=== PATIENT | male | born 1965 | race Caucasian/White ===

== ENCOUNTER 2018-09-15 10:44 | Emergency (ER) | payer SELFPAY ==
[~2018-09-15] VITALS: Ht 175.3 cm; Wt 63.5 kg
--- OUTSIDE RECORDS SUMMARY | 2018-09-15 10:49 | XMS REPORT | Continuity of Care Document ---
Author Author [facility] Organization [facility] Address Unknown Phone Unavailable Allergies There is no data. Medications There is no data. Problems There is no data. Procedures There is no data. Results There is no data. Encounters ACCT No. Visit Date/Time Discharge Status Pt. Type Provider Facility Loc./Unit Complaint [id number] 05/17/2014 11:15:00 05/17/2014 23:59:59 CLS Outpatient [id number] 08/17/2013 15:44:00 08/17/2013 17:13:00 DIS Emergency [id number] 05/18/2013 09:25:00 05/18/2013 10:09:00 DIS Emergency
--- OUTSIDE RECORDS SUMMARY | 2018-09-15 10:49 | XMS REPORT | Continuity of Care Document ---
Author Author [facility] Organization [facility] Address Unknown Phone Unavailable Care Team Providers Care Check Services Clerk Name Role Phone NO, LOCAL PHYSICIAN PP Unavailable Insurance Providers Payer Name Policy Number Subscriber Name Relationship Self Pay SharifFlex Mihaela 01 Self / Same As Patient Advance Directives Directive Response Recorded Date Advance Directives N 05/18/13 9:37am Health Care Power of Interactive Media Marketing Specialist N 05/18/13 9:37am Organ Donor N 05/18/13 9:37am Problems No Known Problems or Medical conditions. Social History History Response Recorded Date/Time Alcohol Use Occasionally Uses 05/18/13 9: 37am Recreational Drug Use N 05/18/13 9:37am Allergies, Adverse Reactions, Alerts Allergen Type Severity Reaction Last Updated House Dust Adverse Reaction Mild 05/18/13 RABBIT DUST Adverse Reaction Mild 05/18/13 silk Adverse Reaction Mild 05/18/13 Medications Medication Dose Units Route Sig Qty Days No Active Prescriptions or Reported Medications Response Recorded Date/Time Status not known Unknown Results No Known Relevant Diagnostic Tests, Laboratory Data and/or Discharge Summary. Procedures Procedure Code Date Ear Culture 04/17/07 Encounters Encounter Location Date/Time Departed Emergency Room [facility] 9:25am
[2018-09-15] MEDS ORDERED: KETOROLAC 30 MG/ML VIAL IVP STA (10:55)
[2018-09-15] MEDS ORDERED: NS IV 1000 ML 1,000 ML IV ONE (10:55)
[2018-09-15] MEDS ORDERED: ASPIRIN 81 MG CHEW (CHILDREN'S ASA) PO ONE (11:00)
[2018-09-15 11:02] LABS: RED BLOOD COUNT 4.85 10^6/uL (4.35-5.85); WHITE BLOOD COUNT 9.1 10^3/uL (4.3-11.0)
[2018-09-15 11:03] LABS: BASOPHILS % (AUTO) 0 % (0-10); EOSINOPHILS # (AUTO) 0.1 10^3/uL (0.0-0.3); EOSINOPHILS % (AUTO) 2 % (0-10); HEMATOCRIT 46 % (40-54); HEMOGLOBIN 16.1 G/DL (13.3-17.7); LYMPHOCYTES # (AUTO) 2.5 X 10^3 (1.0-4.0); LYMPHOCYTES % (AUTO) 27 % (12-44); MEAN CORPUSCULAR HEMOGLOBIN 33 PG (25-34); MEAN CORPUSCULAR HGB CONC 35 G/DL (32-36); MEAN CORPUSCULAR VOLUME 95 FL (80-99); MEAN PLATELET VOLUME 7.9 FL (7.4-10.4); MONOCYTES # (AUTO) 1.2 X 10^3 (0.0-1.0); MONOCYTES % (AUTO) 13 % (0-12); NEUTROPHILS # (AUTO) 5.4 X 10^3 (1.8-7.8); NEUTROPHILS % (AUTO) 59 % (42-75); PLATELET COUNT 274 10^3/uL (130-400); RED CELL DISTRIBUTION WIDTH 12.5 % (10.0-14.5)
--- NOTE | 2018-09-15 11:04 | ED Chest Pain ---
General Chief Complaint: Chest Pain Stated Complaint: L SIDE CHEST/SHOULDER/NECK PAIN WITH MOVEMENT Nursing Triage Note: pt presents to er with complaint of left sided chest pain that raddiates to left shoulder and up his neck. states it started last night after moving furniture and using a leaf blower. states raising his arm above his head worsens his pain. Nursing Sepsis Screen: No Definite Risk Source: patient Exam Limitations: no limitations History of Present Illness Date Seen by Provider: Sep 15, 2018 Time Seen by Provider: 10:45 Initial Comments Here with report of left-sided chest pain that radiates to the left shoulder and arm. Onset yesterday evening at 6 p.m. He was using a leaf blower and moving some furniture yesterday that may have precipitated the pain. States he doesn't have any other significant medical history. He tried a couple ibuprofen last night and that helped. Pain is worse today causing presentation. Denies breathing problems, vomiting, weakness or sweating. Timing/Duration: 12 hours Severity/Quality: moderate Location: shoulder Radiation: arms (and left left) Activities at Onset: activity Prior CP/Workup: no prior chest pain Modifying Factors: worse with exercise; improves with rest ASA po UTILIZATION MANAGEMENT UM NURSE: No NTG SL UTILIZATION MANAGEMENT UM NURSE: No Associated Symptoms: No abdominal pain, No back pain, No diaphoresis, No fever/ chills, No nausea/vomiting, No shortness of breath, No weakness Allergies and Home Medications Allergies Coded Allergies: House Dust (Verified Adverse Reaction, Mild, 05/18/13) Uncoded Allergies: RABBIT DUST (Adverse Reaction, Mild, 05/18/13) silk (Adverse Reaction, Mild, 05/18/13) Patient Home Medication List Home Medication List Reviewed: Yes Review of Systems Review of Systems Constitutional: see HPI; No chills, No fever EENTM: No Symptoms Reported Respiratory: Denies Cough, Denies Shortness of Air Cardiovascular: Chest Pain; Denies Edema Gastrointestinal: Denies Abdominal Pain, Denies Diarrhea, Denies Nausea, Denies Vomiting Genitourinary: No Symptoms Reported Musculoskeletal: see HPI, joint pain, muscle pain; No muscle weakness, No neck pain Skin: no symptoms reported All Other Systems Reviewed Negative Unless Noted: Yes Past Easndux-Kunjga-Atrmlw Hx Past Med/Social Hx: Reviewed Nursing Past Med/Soc Hx Patient Social History Alcohol Use: Occasionally Uses Recreational Drug Use: No Smoking Status: Current Someday Smoker Recent Foreign Travel: No Contact w/Someone Who Travel: No Recent Infectious Disease Expo: No Immunizations Up To Date Tetanus Booster (TDap): Unknown PED Vaccines UTD: Yes Past Medical History Respiratory: No Cardiac: No Neurological: No Reproductive Disorders: No Gastrointestinal: No Musculoskeletal: No Endocrine: No Cancer: No Psychosocial: No Integumentary: No Blood Disorders: No Family Medical History Reviewed Nursing Family Hx No Pertinent Family Hx Physical Exam Vital Signs Vital Signs - First Documented 09/15/18 10:45 Pulse 96 Resp 24 B/P (MAP) 161/110 (127) Pulse Ox 96 O2 Delivery Room Air Capillary Refill : Less Than 3 Seconds Height, Weight, BMI Height: 5'9.00" Weight: 140lbs. oz. 63.893226mr; BMI Method:Stated General Appearance: No Apparent Distress, WD/WN HEENT: PERRL/EOMI, Pharynx Normal Neck: Non Tender, Supple Respiratory: Lungs Clear, Normal Breath Sounds Cardiovascular: Regular Rate, Rhythm, No Murmur Gastrointestinal: Non Tender, Soft Extremity: Normal Inspection, Normal Range of Motion, Non Tender Neurologic/Psychiatric: Alert, Oriented x3 Skin: Normal Color, Warm/Dry Progress/Results/Core Measures Results/Orders Lab Results Laboratory Tests Test 09/15/18 10:50 Range/Units White Blood Count 9.1 4.3-11.0 10^3/uL Red Blood Count 4.85 4.35-5.85 10^6/uL Hemoglobin 16.1 13.3-17.7 G/DL Hematocrit 46 40-54 % Mean Corpuscular Volume 95 80-99 FL Mean Corpuscular Hemoglobin 33 25-34 PG Mean Corpuscular Hemoglobin Concent 35 32-36 G/DL Red Cell Distribution Width 12.5 10.0-14.5 % Platelet Count 274 130-400 10^3/uL Mean Platelet Volume 7.9 7.4-10.4 FL Neutrophils (%) (Auto) 59 42-75 % Lymphocytes (%) (Auto) 27 12-44 % Monocytes (%) (Auto) 13 H 0-12 % Eosinophils (%) (Auto) 2 0-10 % Basophils (%) (Auto) 0 0-10 % Neutrophils # (Auto) 5.4 1.8-7.8 X 10^3 Lymphocytes # (Auto) 2.5 1.0-4.0 X 10^3 Monocytes # (Auto) 1.2 H 0.0-1.0 X 10^3 Eosinophils # (Auto) 0.1 0.0-0.3 10^3/uL Basophils # (Auto) 0.0 0.0-0.1 10^3/uL Prothrombin Time 12.3 12.2-14.7 SEC INR Comment 0.9 0.8-1.4 Activated Partial Thromboplast Time 28 24-35 SEC Sodium Level 139 135-145 MMOL/L Potassium Level 3.6 3.6-5.0 MMOL/L Chloride Level 103 98-107 MMOL/L Carbon Dioxide Level 23 21-32 MMOL/L Anion Gap 13 5-14 MMOL/L Blood Urea Nitrogen 18 7-18 MG/DL Creatinine 0.95 0.60-1.30 MG/DL Estimat Glomerular Filtration Rate > 60 BUN/Creatinine Ratio 19 Glucose Level 99 70-105 MG/DL Calcium Level 10.1 8.5-10.1 MG/DL Corrected Calcium 8.5-10.1 MG/DL Magnesium Level 2.4 1.8-2.4 MG/DL Total Bilirubin 0.6 0.1-1.0 MG/DL Aspartate Amino Transf (AST/SGOT) 60 H 5-34 U/L Alanine Aminotransferase (ALT/SGPT) 85 H 0-55 U/L Alkaline Phosphatase 91 40-136 U/L Myoglobin 29.2 10.0-92.0 NG/ML Troponin I < 0.30 <0.30 NG/ML Total Protein 7.9 6.4-8.2 GM/DL Albumin 4.9 H 3.2-4.5 GM/DL My Orders Orders - LELAND ACEVEDO MD Cbc With Automated Diff (09/15/18 10:46) Magnesium (09/15/18 10:46) Chest 1 View, Ap/Pa Only (09/15/18 10:46) Ekg Tracing (09/15/18 10:46) Cardiac Profile 1 (09/15/18 10:46) Comprehensive Metabolic Panel (09/15/18 10:46) Myoglobin Serum (09/15/18 10:46) Protime With Inr (09/15/18 10:46) Partial Thromboplastin Time (09/15/18 10:46) O2 (09/15/18 10:46) Monitor-Rhythm Ecg Trace Only (09/15/18 10:46) Lipid Panel (09/16/18 06:00) Aspirin Chewable Tablet (Baby Aspirin Ch (09/15/18 11:00) Saline Lock/Iv-Start (09/15/18 10:46) Ns Iv 1000 Ml (Sodium Chloride 0.9%) (09/15/18 10:55) Ketorolac Injection (Toradol Injection) (09/15/18 10:55) Metoprolol Succinate (Xl) Tab (Toprol Xl (09/15/18 11:00) Medications Given in ED Current Medications Medications Dose Ordered Sig/Valerie Route Start Time Stop Time Status Last Admin Dose Admin Aspirin 324 mg ONCE ONCE PO 09/15/18 11:00 09/15/18 11:01 DC 09/15/18 10:51 324 MG Metoprolol Succinate 25 mg ONCE ONCE PO 09/15/18 11:00 09/15/18 11:01 DC 09/15/18 11:04 25 MG Sodium Chloride 1,000 ml @ 0 mls/hr Q0M ONCE IV 09/15/18 10:55 09/15/18 10:57 DC 09/15/18 11:04 1,000 MLS/HR Vital Signs/I&O 09/15/18 10:45 Pulse 96 Resp 24 B/P (MAP) 161/110 (127) Pulse Ox 96 O2 Delivery Room Air Blood Pressure Mean: 127 Progress Progress Note : Progress Note Seen and evaluated. IV, labs, EKG and chest x-ray ordered. ASA 324 mg by mouth given. Toradol 30 mg IV and normal saline 1 L bolus ordered. Monitor patient. Toprol-XL 25 mg by mouth ordered for hypertension. EKG would suggest that the hypertension is chronic. 1151: Overall much improved. Blood pressures declining slightly and heart rate down to 80 now. We will continue the metoprolol outpatient have him follow-up with his primary doctor. Discharged home with return precautions. Patient verbalize understanding instructions and agreement with plan. Initial ECG Impression Date: Sep 15, 2018 Initial ECG Impression Time: 10:48 Initial ECG Rate: 97 Initial ECG Rhythm: Normal Sinus Comment Sinus rhythm with LVH noted. No evidence of ST elevation MO. Similar to but advancing LVH. Interpreted by me. Diagnostic Imaging Diagonstic Imaging: Xray Plain Films/CT/US/NM/MRI: chest Comments NAME: FLEX [facility]ENCIO [facility] REC#: [id number] PT STATUS: REG ER : 1965 PHYSICIAN: LELAND ACEVEDO MD ADMIT DATE: 09/15/18/ER Signed Date of Exam: 09/15/18 CHEST 1 VIEW, AP/PA ONLY EXAMINATION: Portable erect AP chest obtained at 1101h. INDICATION: Chest pain The heart size is at the upper limits of normal or slightly enlarged. The heart does seem somewhat more prominent than noted on the prior exam of 08/17/2013. The lungs are clear. There is no sign of failure, pneumonia or a pleural effusion to indicate an acute abnormality. The mediastinum is not widened. The osseous structures are intact. IMPRESSION: There is borderline cardiomegaly but there is no evidence for an acute cardiopulmonary abnormality. Dictated by: Dictated on workstation # [id number] Dict: 09/15/18 1106 Trans: 09/15/18 1138 Interpreted by: MONSTER CHAVARRIA MD Electronically signed by: MONSTER CHAVARRIA MD 09/15/18 1138 Departure Impression Primary Impression: Uncontrolled hypertension Additional Impressions: Chest pain Qualified Codes: R07.9 - Chest pain, unspecified Left shoulder strain Qualified Codes: S46.912A - Strain of unspecified muscle, fascia and tendon at shoulder and upper arm level, left arm, initial encounter Disposition: 01 HOME, SELF-CARE Condition: Improved Departure-Patient Inst. Decision time for Depature: 11:54 Referrals: VIVIAN TOMLINSON MD NO,LOCAL PHYSICIAN (PCP) Primary Care Physician Patient Instructions: Chest Pain (DC), High Blood Pressure (DC), Muscle Strain (DC) Add. Discharge Instructions: All discharge instructions reviewed with patient and/or family. Voiced understanding. You may take ibuprofen 600 mg every 8 hours as needed for pain. You may take Tylenol/acetaminophen 1000 mg every 8 hours as needed for pain. Your blood pressure was noted to be elevated and I do believe this is chronic. You need to have further evaluation for this. You were given a prescription for 1 month to help you through that time frame to get in with your doctor. It is very important that you get follow-up to get her blood pressure treated so you don't have long-term adverse effects of high blood pressure. Return for worse pain, fever, vomiting, weakness, breathing problems or other concerns as needed. Scripts Metoprolol Tartrate (Metoprolol Tartrate) 25 Mg Tablet 25 MG PO BID, #60 TAB Prov: LELAND ACEVEDO MD 09/15/18 Work/School Note: Local Medical Staff Listing LELAND ACEVEDO MD Sep 15, 2018 11:04
[2018-09-15 11:14] LABS: INR 0.9 (0.8-1.4); PROTHROMBIN TIME PATIENT 12.3 SEC (12.2-14.7)
--- NOTE | 2018-09-15 11:18 | Diagnostic Imaging Report ---
EXAMINATION: Portable erect AP chest obtained at 1101h. INDICATION: Chest pain The heart size is at the upper limits of normal or slightly enlarged. The heart does seem somewhat more prominent than noted on the prior exam of 08/17/2013. The lungs are clear. There is no sign of failure, pneumonia or a pleural effusion to indicate an acute abnormality. The mediastinum is not widened. The osseous structures are intact. IMPRESSION: There is borderline cardiomegaly but there is no evidence for an acute cardiopulmonary abnormality. Dictated by: Dictated on workstation # [id number]
[2018-09-15 11:22] LABS: ALANINE AMINOTRANSFERASE 85 U/L (0-55); ALBUMIN 4.9 GM/DL (3.2-4.5); ALKALINE PHOSPHATASE 91 U/L (40-136); BILIRUBIN,TOTAL 0.6 MG/DL (0.1-1.0); BUN/CREATININE RATIO 19; CALCIUM 10.1 MG/DL (8.5-10.1); CARBON DIOXIDE 23 MMOL/L (21-32); CHLORIDE 103 MMOL/L (98-107); CREATININE SERUM 0.95 MG/DL (0.60-1.30); GFR ESTIMATED > 60; GLUCOSE 99 MG/DL (70-105); MAGNESIUM 2.4 MG/DL (1.8-2.4); POTASSIUM 3.6 MMOL/L (3.6-5.0); SODIUM 139 MMOL/L (135-145); TOTAL PROTEIN 7.9 GM/DL (6.4-8.2)
[2018-09-15 11:29] LABS: MYOGLOBIN SERUM 29.2 NG/ML (10.0-92.0)
[2018-09-15] MEDS ORDERED: METO-333 PO (11:56)
[2018-09-15 12:04] VITALS: BP 133/104
== END 2018-09-15 12:04 | disposition home or self-care (01) ==
LOC: EDUNIT# 10:44 → ER 10:45
DX: S46.912A Strain of unspecified muscle, fascia and tendon at shoulder and upper arm level, left arm, initial encounter (principal); I10 Essential (primary) hypertension; R07.89 Other chest pain; F17.200 Nicotine dependence, unspecified, uncomplicated; X50.0XXA Overexertion from strenuous movement or load, initial encounter
CPT/HCPCS: 36415; 71045; 80053; 83735; 83874; 84484; 85025; 85610; 85730; 93005; 93041